=== PATIENT | female | born 1985 | race African-American/Black ===

== ENCOUNTER 2016-10-09 20:16 | Emergency (ER) | payer OTHER ==
[~2016-10-09] VITALS: Ht 162.6 cm; Wt 77.1 kg
[2016-10-09 21:05] VITALS: BP 155/82
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
[2016-10-09] MEDS ORDERED: ROBAXIN-750750 MG PO (21:58)
[2016-10-09] MEDS ORDERED: IBUPROFEN600 MG ORAL (21:58)
[2016-10-09 22:25] VITALS: BP 130/70
== END 2016-10-09 22:24 | disposition home or self-care (01) ==
LOC: EMR 21:36
DX: M54.2 Cervicalgia (principal); M54.9 Dorsalgia, unspecified
CPT/HCPCS: 99284